=== PATIENT | female | born 1940 | race Caucasian/White ===

== ENCOUNTER 2022-06-21 11:29 | Day surgery (SDC) | payer OTHER, BC ==
[2022-06-20 13:37] VITALS: BMI 27.6
[~2022-06-21 11:29] MED LIST: LACTATED RINGERS SOLUTION 1,000 ML IV SCH; ONDANSETRON 4 MG/2 ML VIAL IVPUSH PRN; oxyCODONE HCL 5 MG TABLET PO PRN
[2022-06-21] MEDS ORDERED: MIDAZOLAM HCL 2 MG/2 ML SINGLE DOSE VIAL ONE ×2 (11:57→12:55)
[2022-06-21] MEDS ORDERED: BUPIVACAINE HCL/PF 0.5% (5 MG/ML) 30 ML VIAL IJ ONE (11:57)
[2022-06-21] MEDS ORDERED: DEXAMETHASONE SOD PHOSPHATE 10 MG/1 ML VIAL ONE (11:58)
[2022-06-21] MEDS ORDERED: BUPIVACAINE HCL 100 ML ONE (12:27)
[2022-06-21] MEDS ORDERED: ceFAZolin SODIUM 1 GM VIAL ONE (13:17)
[2022-06-21] MEDS ORDERED: PROPOFOL 20 ML ONE (13:26)
[2022-06-21] MEDS ORDERED: DEXAMETHASONE SOD PHOSPHATE 4 MG/1 ML VIAL ONE (13:29)
[2022-06-21] MEDS ORDERED: ONDANSETRON 4 MG/2 ML VIAL ONE ×2 (13:29→14:15)
[2022-06-21] MEDS ORDERED: KETOROLAC TROMETHAMINE 30 MG/1 ML VIAL ONE (14:15)
[2022-06-21 17:58] VITALS: TEMP 97.8
[2022-06-21 18:10] VITALS: BP 123/68; PULSE 73; RESP 17
== END 2022-06-21 16:00 | disposition home or self-care (01) ==
LOC: FASU 11:29
PROVIDERS: ATTEND Orthopaedic Surgery Hand Surgery
PROC: 0LN50ZZ Release Right Lower Arm and Wrist Tendon, Open Approach (ICD-10-PCS; 2022-06-21)
PROC: 0PSH04Z Reposition Right Radius with Internal Fixation Device, Open Approach (ICD-10-PCS; principal; 2022-06-21 13:28)
DX: S52.571A Other intraarticular fracture of lower end of right radius, initial encounter for closed fracture (principal); X58.XXXA Exposure to other specified factors, initial encounter; Y93.9 Activity, unspecified; Y92.9 Unspecified place or not applicable
CPT/HCPCS: 25290; 25609; C1713; 73110-TC-RT-FY; J1100